=== PATIENT | female | born 1980 | race African-American/Black ===

== ENCOUNTER 2017-03-16 09:20 | Emergency (ER) | payer SELFPAY ==
[~2017-03-16] VITALS: Ht 144.8 cm; Wt 50.0 kg
[2017-03-16 09:21] VITALS: BP 97/70; PULSE 88; RESP 13; TEMP 97.5; O2SAT 96
[2017-03-16] MEDS ORDERED: MAGICADU2 SWISH-SPIT (09:44)
[2017-03-16] MEDS ORDERED: IBUP1TAB7 PO (09:44)
--- NOTE | 2017-03-16 09:48 | PD ---
HPI Chief Complaint: Oral / Dental Pain or Problem Time Seen by Provider: 09:40 Travel History International Travel<30 days: No Contact w/Intl Traveler<30days: No Traveled to known affect area: No History of Present Illness HPI 36-year-old female presents for evaluation of dental pain. Symptoms started 1.5 months ago. She reports an aching pain in her left mandibular third molar which is constant, worse when chewing, unrelieved with [id number]-[id number] analgesics. Denies any dental trauma. Denies any fevers or chills. She has no other complaints at this time. [facility] Past Medical History Medical History: Denies Significant Hx ?: Not LMP: 03/10/17 Social History Alcohol Use: No Tobacco Use: No Allergies-Medications (Allergen,Severity, Reaction): Coded Allergies: No Known Allergies (Unverified , 03/16/17) Reported Meds & Prescriptions Reported Meds & Active Scripts Active Magic Mouthwash Adult Liq (Multi-Ingredient Mouthwash/Gargle) 120 Ml Susp 10 Ml SWISH-SPIT ACHS Each 5mL contains: Nystatin 200,000units, Diphenhydramine 4.25mg, Viscous Lidocaine 10mg, Davila syrup 0.8 mL Ibuprofen 800 Mg Tab 800 Mg PO Q6HR PRN Review of Systems General / Constitutional: No: Fever, Chills HENT: Positive: Dental Difficulties, No: Sore Throat, Congestion Physical Exam Narrative GENERAL: Well-developed well-nourished female in no acute distress SKIN: Warm and dry. HEAD: Atraumatic. Normocephalic. EYES: Pupils equal and round. No scleral icterus. No injection or drainage. ENT: No nasal bleeding or discharge. Mucous membranes pink and moist. The left mandibular third molar is impacted. There is no gingival edema, no trismus , no sublingual edema, no dental decay. NECK: Trachea midline. No JVD. No lymphadenopathy. Neck supple full range of motion. CARDIOVASCULAR: Regular rate and rhythm. No murmur appreciated. RESPIRATORY: No accessory muscle use. Clear to auscultation. Breath sounds equal bilaterally. Data Data Last Documented VS Vital Signs Date Time Temp Pulse Resp B/P (MAP) Pulse Ox O2 Delivery O2 Flow Rate FiO2 03/16/17 09:21 97.5 88 13 97/70 (79) 96 Orders Orders Ed Discharge Order (03/16/17 09:43) MDM Medical Decision Making Medical Screen Exam Complete: Yes Emergency Medical Condition: Yes Medical Record Reviewed: Yes Differential Diagnosis Impacted third molar versus dental caries versus periodontal abscess Narrative Course 36-year-old female with 1.5 months of dental pain. Examination reveals an impacted left third molar. Ultimately this patient will have to follow up with an oral surgeon to discuss tooth extraction. She will be discharged with a short course of ibuprofen and Magic mouthwash. Diagnosis Primary Impression: Impacted third molar tooth Referrals: Dentist Additional Instructions: Medication as needed. Take ibuprofen with meals. Follow-up with a dentist or oral surgeon to discuss definitive treatment. Return for any emergent medical conditions. Med/Other Pt SpecificInfo: Prescription(s) given Scripts Tqfpbdba-Fxcuajrlgowjzki-Jdjfeniga Liq (Magic Mouthwash Adult Liq) 120 Ml Susp 10 ML SWISH-SPIT ACHS for Mouth sores, #120 ML 1 Refill Each 5mL contains: Nystatin 200,000units, Diphenhydramine 4.25mg, Viscous Lidocaine 10mg, Davila syrup 0.8 mL Prov: Charly Sterling MD 03/16/17 Ibuprofen (Ibuprofen) 800 Mg Tab 800 MG PO Q6HR Y for PAIN, #40 TAB 0 Refills Prov: Charly Sterling MD 03/16/17 Disposition: 01 DISCHARGE HOME Condition: Stable Arya Carpenter Mar 16, 2017 09:48
== END 2017-03-16 10:00 | disposition home or self-care (01) ==
LOC: NEPK 09:20
DX: K01.1 Impacted teeth (principal)
CPT/HCPCS: 99283